=== PATIENT | male | born 1990 | race Two or more races ===

== ENCOUNTER 2017-07-20 00:05 | Emergency (ER) | payer OTHER ==
[2017-07-20] MEDS: TETRACAINE 0.5% OPHTH SOLN 4ML OU ONE ×2 (00:53→00:55)
[2017-07-20] MEDS: FLUORESCEIN OPHTH 1 MG STRIP OU ONE ×2 (00:53→00:54)
[2017-07-20] MEDS ORDERED: ERYTOIN8 OD (01:03)
[2017-07-20 01:13] VITALS: BP 118/70
== END 2017-07-20 01:15 | disposition home or self-care (01) ==
LOC: M ED 00:05
DX: T26.11XA Burn of cornea and conjunctival sac, right eye, initial encounter (principal); X13.1XXA Other contact with steam and other hot vapors, initial encounter; Y92.59 Other trade areas as the place of occurrence of the external cause; Y93.89 Activity, other specified; Y99.8 Other external cause status